=== PATIENT | female | born 1975 | race Caucasian/White ===

== ENCOUNTER 2018-11-03 14:49 | Observation (INO) | payer SELFPAY ==
[2018-11-03 15:15] LABS: #Basophils 0.1 thou/uL (0.0-0.2); #Eosinphils 0.1 thou/uL (0.0-0.7); #Monocytes 0.4 thou/uL (0.11-0.59); #Neutrophils 3.5 thou/uL (1.40-6.50); %Basophils 0.9 % (0.0-1.0); %Lymphocytes 41.6 % (21.0-51.0); %Neutrophils 49.5 % (42.0-75.0); Hemoglobin 12.2 g/dL (12.0-16.0); Mean Corpuscular HGB CONC 34.7 g/dL (32.0-36.0); Mean Corpuscular Hemoglobin 33.9 pg (27.0-31.0); Mean Corpuscular Volume 97.7 fL (78.0-98.0); Mean Platelet Volume 7.4 fL (7.4-10.4); Platelet Count 249 thou/uL (130-400); White Blood Cell (WBC) Count 7.1 thou/uL (4.8-10.8)
[2018-11-03 15:22] LABS: PTT 26.5 SEC (22.9-36.1); Prothrombin Time 12.7 SEC (12.0-14.7)
[2018-11-03 15:28] LABS: ALT (SGPT) 20 U/L (8-55); AST (SGOT) 17 U/L (5-34); Albumin 3.9 g/dL (3.5-5.0); Alkaline Phosphatase 44 U/L (40-110); Anion Gap 12 mmol/L (10-20); BUN (Urea Nitrogen) 13 mg/dL (7.0-18.7); Bilirubin, Total 0.4 mg/dL (0.2-1.2); CK (CPK) 97 U/L (29-168); Calc. Creatinine Clearance 0 mL/min (70-130); Calcium 9.1 mg/dL (7.8-10.44); Carbon Dioxide 21 mmol/L (22-29); Chloride 108 mmol/L (98-107); Estimated GFR-MDRD 70; Globulin 2.6 g/dL (2.4-3.5); Glucose 98 mg/dL (70-105); Potassium 3.8 mmol/L (3.5-5.1); Protein, Total 6.5 g/dL (6.0-8.3); Sodium 137 mmol/L (136-145)
--- NOTE | 2018-11-03 15:30 | CT ---
CT Brain WO Con: 11/03/2018 2:58 PM CLINICAL HISTORY: Level 2 stroke alert; numbness to the entire left side of the body with dizziness. IMAGING TECHNIQUE: Multiple CT images were obtained of the brain without IV contrast. COMPARISON: None. FINDINGS: Brain: No acute infarct or hemorrhage is evident. No midline shift. Ventricles: Normal. No hydrocephalus.. Skull: Intact.. Visualized Paranasal sinuses: Clear.. Mastoid air cells:Clear. Extracranial soft tissues:Normal. IMPRESSION: No acute intracranial abnormality. Findings called to Dr. Lozano at 3:20 PM on November 03, 2018.
--- NOTE | 2018-11-03 16:14 | RAD ---
EXAM: Chest Two Views 11/03/2018 4:11 PM HISTORY: Numbness of the left side of the body and dizziness COMPARISON: None. FINDINGS: Heart: Normal in size and contour. Pulmonary vessels: Normal. Costophrenic angles: Clear. Lungs: No acute airspace consolidation. Pneumothorax: None. Osseous structures:Intact. Additional findings: None. IMPRESSION: No significant acute intrathoracic disease.
[2018-11-03 16:37] LABS: BHCG - Serum Negative (NEGATIVE); Pregs Control Background? CLEAR/WHITE (CLR/WHITE); Pregs Control Bar Appear? YES (CONTROL BAR)
[2018-11-03 17:01] LABS: Bilirubin Negative (Negative); Blood, Urine 2+ (Negative); Clarity Clear (Clear); Glucose, Urine (Dipstick) Normal (Negative); Leukocyte 25 Leu/uL (Negative); Nitrite Negative (Negative); Protein, Urine (Dipstick) 10 mg/dL (Neg-Trace); Urobilinogen Normal mg/dL (Less than 2)
[2018-11-03 17:11] LABS: Squamous Epithelial 0-3 HPF (0-3); WBC/HPF 0-3 HPF (0-3)
[2018-11-03 17:12] LABS: Bacteria/HPF None Seen HPF (None Seen)
[2018-11-03] MEDS ORDERED: Aspirin Chewable 81 MG TAB ONE (17:51)
[2018-11-03] MEDS ORDERED: Meclizine HCl 25 MG TAB ONE (17:51)
[2018-11-03] MEDS ORDERED: hydrALAZINE 20 MG/ML VIAL SLOW IVP PRN (20:34)
--- NOTE | 2018-11-03 20:42 | PDOC.HHP ---
Hospitalist HPI - History of Present Illness left sided numbness History of Present Illness: 43 y/o smoke female with a history of trigeminal neuralgia presents to the ED with an acute onset of left sided numbness. Patient is right hand dominant and had been in her usual sate of health until 600am today when she began to experience the left sided numbness and associated ataxia, disequilibrium when walking. Denies recent illness. CT brain in the ER is negative. Not a TPA candidate as she was outside the window. Hospitalist ROS - Review of Systems Constitutional: denies: fever, chills, sweats, weakness, malaise, other Eyes: denies: pain, vision change, conjunctivae inflammation, eyelid inflammation, redness, other ENT: denies: ear pain, ear discharge, nose pain, nose discharge, nose congestion , mouth pain, mouth swelling, throat pain, throat swelling, other Respiratory: denies: cough, dry, shortness of breath, hemoptysis, SOB with excertion, pleuritic pain, sputum, wheezing, other Cardiovascular: denies: chest pain, palpitations, orthopnea, paroxysmal noc. dyspnea, edema, light headedness, other Gastrointestinal: denies: nausea, vomiting, abdominal pain, diarrhea, constipation, melena, hematochezia, other Genitourinary: denies: dysuria, frequency, incontinence, hematuria, retention, other Musculoskeletal: denies: neck pain, shoulder pain, arm pain, back pain, hand pain, leg pain, foot pain, other Skin: denies: rash, lesions, nain, bruising, other Neurological: reports: numbness, incoordination All other systems reviewed; all pertinent +/- noted in HPI/Subj Hospitalist History - Past Medical History Source: patient Cardiac: reports: no pertinent history, Other (trigeminal neurlagia) Pulmonary: reports: no pertinent history RECREATIONAL THERAPY AIDE: reports: no pertinent history Gastrointestinal: reports: no pertinent history Heme/Onc: reports: no pertinent history Hepatobiliary: reports: no pertinent history Psych: reports: no pertinent history Musculoskeletal: reports: no pertinent history Rheumatologic: reports: no pertinent history Infectious Disease: reports: no pertinent history ENT: reports: no pertinent history Renal/: reports: no pertinent history Endocrine: reports: no pertinent history Dermatology: reports: no pertinent history - Past Surgical History Past Surgical History: reports: no pertinent history - Family History Family History: reports: no pertinent history - Social History Smoking Status: Current every day smoker Alcohol: reports: None Drugs: reports: none Living Situation: With Family Activity level: independent ambulation - Exam General Appearance: NAD, awake alert Eye: PERRL, anicteric sclera ENT: normocephalic atraumatic, no oropharyngeal lesions, moist mucosa Neck: supple, symmetric, no JVD, no thyromegaly, no lymphadenopathy, no carotid bruit Heart: RRR, no murmur, no gallops, no rubs, normal peripheral pulses Respiratory: CTAB, no wheezes, no rales, no ronchi, normal chest expansion, no tachypnea, normal percussion Gastrointestinal: soft, non-tender, non-distended, normal bowel sounds, no palpable masses, no hepatomegaly, no splenomegaly, no bruit Extremities: no cyanosis, no clubbing, no edema Skin: normal turgor, no lesions, no rashes Neurological: cranial nerve grossly intact, normal sensation to touch, no weakness, no focal deficits, no new deficit Musculoskeletal: normal tone, normal strength, no muscle wasting Psychiatric: normal affect, normal behavior, A&O x 3 Hospitalist Results - Labs Result Diagrams: 11/03/18 15:02 11/03/18 15:02 Lab results: WBC 7.1 thou/uL (4.8-10.8) 11/03/18 15:02 Hgb 12.2 g/dL (12.0-16.0) 11/03/18 15:02 Hct 35.1 % (36.0-47.0) L 11/03/18 15:02 MCV 97.7 fL (78.0-98.0) 11/03/18 15:02 Plt Count 249 thou/uL (130-400) 11/03/18 15:02 Neutrophils % 49.5 % (42.0-75.0) 11/03/18 15:02 Sodium 137 mmol/L (136-145) 11/03/18 15:02 Potassium 3.8 mmol/L (3.5-5.1) 11/03/18 15:02 Chloride 108 mmol/L (98-107) H 11/03/18 15:02 Carbon Dioxide 21 mmol/L (22-29) L 11/03/18 15:02 BUN 13 mg/dL (7.0-18.7) 11/03/18 15:02 Creatinine 0.89 mg/dL (0.6-1.1) 11/03/18 15:02 Glucose 98 mg/dL (70-105) 11/03/18 15:02 Calcium 9.1 mg/dL (7.8-10.44) 11/03/18 15:02 Total Bilirubin 0.4 mg/dL (0.2-1.2) 11/03/18 15:02 AST 17 U/L (5-34) 11/03/18 15:02 ALT 20 U/L (8-55) 11/03/18 15:02 Alkaline Phosphatase 44 U/L (40-110) 11/03/18 15:02 Creatine Kinase 97 U/L (29-168) 11/03/18 15:02 Troponin I Less than 0.010 ng/mL (< 0.028) 11/03/18 15:02 Serum Total Protein 6.5 g/dL (6.0-8.3) 11/03/18 15:02 Albumin 3.9 g/dL (3.5-5.0) 11/03/18 15:02 Urine Ketones Negative mg/dL (Negative) 11/03/18 16:49 Urine Blood 2+ (Negative) A 11/03/18 16:49 Urine Nitrite Negative (Negative) 11/03/18 16:49 Ur Leukocyte Esterase 25 Nilay/uL (Negative) 11/03/18 16:49 Urine RBC 4-6 HPF (0-3) A 11/03/18 16:49 Urine WBC 0-3 HPF (0-3) 11/03/18 16:49 Ur Squamous Epith Cells 0-3 HPF (0-3) 11/03/18 16:49 Urine Bacteria None Seen HPF (None Seen) 11/03/18 16:49 - Radiology Interpretation CT scan - head Status: report reviewed by me (no intracranial abnormality) Hospitalist H&P A/P - Problem (1) Numbness and tingling in left arm Code(s): R20.0 - ANESTHESIA OF SKIN; R20.2 - PARESTHESIA OF SKIN Status: Acute Assessment and Plan: 1. left sided numbness, will obtain an MRI of the brain without contrast to evaluate for acute CVA, start aspirin 325mg daily and lipitor 80mg; obtain a lipid profile, neurology consult, physical/occupational therapy; smoking cessation (2) Trigeminal neuralgia Code(s): G50.0 - TRIGEMINAL NEURALGIA Status: Acute Assessment and Plan: on gabapentin at home
[2018-11-03] MEDS: Atorvastatin Calcium 40 MG TAB PO SCH (23:00)
[2018-11-03 23:23] VITALS: BMI 39.7
[2018-11-04 07:42] LABS: Cardiac Risk 3.4 (Less than 4.5)
--- NOTE | 2018-11-04 08:46 | MRI ---
MRI Brain WO Con: 11/04/2018 8:34 PM CLINICAL HISTORY: History of stroke. COMPARISON: Head CT previous day FINDINGS: Extra axial spaces: Normal in size and morphology for the patient's age. Acute infarction: None. Ventricular system: Normal in size and morphology for the patient's age. Basal cisterns: Normal. Cerebral parenchyma: Normal. Midline shift: None. Cerebellum: Normal. Brainstem: Normal. Paranasal sinuses:Prominent, mixed signal intensity opacification of left maxillary sinus IMPRESSION:No acute intracranial abnormality.
[2018-11-04] MEDS: Enoxaparin Sodium 40 MG/0.4 ML SYRINGE SC SCH (09:53)
[2018-11-04] MEDS: Aspirin 325 mg Enteric Coated Tablet PO SCH (09:53)
[2018-11-04] MEDS ORDERED: Ketorolac Tromethamine 30 MG/ML VIAL IVP SCH (13:15)
[2018-11-04] MEDS ORDERED: Fioricet 325/50/40 mg Tablet PO SCH (13:30)
--- NOTE | 2018-11-04 15:20 | PDOC.HOSPP ---
- Subjective Encounter Date: 11/04/18 Subjective: reports her symptoms has improved, although, remains vertiginous; tolerating oral intake; complains of headache, per nursing she is going outside the building for smoking - Objective Vital Signs & Weight: Vital Signs (12 hours) Temp Pulse Pulse Pulse Resp BP BP 11/04/18 11:57 98.1 F 71 16 11/04/18 10:05 56 L 67 146/97 H 151/98 H 11/04/18 10:04 56 L 67 146/97 H 151/98 H 11/04/18 08:26 97.8 F 68 18 11/04/18 03:40 98.3 F 60 18 BP Pulse Ox 11/04/18 11:57 133/91 H 95 11/04/18 10:05 11/04/18 10:04 11/04/18 08:26 142/99 H 100 11/04/18 03:40 111/77 93 L Weight Weight 224 lb 4.8 oz I&O: 11/03/18 11/04/18 11/05/18 06:59 06:59 06:59 Intake Total 240 Balance 240 Result Diagrams: 11/03/18 15:02 11/03/18 15:02 Hospitalist ROS - Review of Systems Respiratory: denies: shortness of breath Cardiovascular: denies: chest pain Gastrointestinal: denies: abdominal pain Neurological: reports: incoordination - Medication Medications: Active Medications Generic Name Dose Route Start Last Admin Trade Name Freq PRN Reason Stop Dose Admin Acetaminophen/Butalbital/Caffeine 2 tab 11/04/18 13:30 11/04/18 13:42 Fioricet PO 11/04/18 15:30 2 tab NOW KENDALL Administration Aspirin 325 mg 11/04/18 09:00 11/04/18 09:53 Ecotrin PO 325 mg DAILY KENDALL Administration Atorvastatin Calcium 80 mg 11/03/18 21:00 11/03/18 23:00 Lipitor PO 80 mg HS KENDALL Administration Enoxaparin Sodium 40 mg 11/04/18 09:00 11/04/18 09:53 Lovenox SC 40 mg 0900 KENDALL Administration - Exam General Appearance: NAD, awake alert Eye: PERRL, anicteric sclera ENT: normocephalic atraumatic, no oropharyngeal lesions, moist mucosa Neck: supple, symmetric, no JVD, no thyromegaly, no lymphadenopathy, no carotid bruit Heart: RRR, no murmur, no gallops, no rubs, normal peripheral pulses Respiratory: CTAB, no wheezes, no rales, no ronchi, normal chest expansion, no tachypnea, normal percussion Gastrointestinal: soft, non-tender, non-distended, normal bowel sounds, no palpable masses, no hepatomegaly, no splenomegaly, no bruit Extremities: no cyanosis, no clubbing, no edema Skin: normal turgor, no lesions, no rashes Neurological: cranial nerve grossly intact, normal sensation to touch, no weakness, no focal deficits, no new deficit Musculoskeletal: normal tone, normal strength, no muscle wasting Psychiatric: normal affect, normal behavior, A&O x 3 Hosp A/P (1) Numbness and tingling in left arm Code(s): R20.0 - ANESTHESIA OF SKIN; R20.2 - PARESTHESIA OF SKIN Status: Acute Plan: improved; MRI Brain is negative for acute CVA; will discontinue lipitor, continue low dose aspirin; no stroke, will discontinue neurology consult and stroke team; ; may need outpatient evaluation for cervical radiculopathy; await CTA head/neck in addition to Echocardiogram (2) Trigeminal neuralgia Code(s): G50.0 - TRIGEMINAL NEURALGIA Status: Acute Plan: continue with gabapentin
[2018-11-04] MEDS ORDERED: Nicotine 14 MG PATCH TD SCH (16:00)
[2018-11-04] MEDS: Meclizine HCl 25 MG TAB PO SCH (21:26)
[2018-11-04] MEDS: Atorvastatin Calcium 40 MG TAB PO SCH (21:26)
[2018-11-04] MEDS: Gabapentin 300 MG CAP PO SCH (21:26)
[2018-11-05] MEDS: Meclizine HCl 25 MG TAB PO SCH (06:45)
[2018-11-05] MEDS: Aspirin 325 mg Enteric Coated Tablet PO SCH (09:36)
[2018-11-05] MEDS: Gabapentin 300 MG CAP PO SCH (09:36)
[2018-11-05] MEDS: Enoxaparin Sodium 40 MG/0.4 ML SYRINGE SC SCH (09:36)
[2018-11-05 11:28] VITALS: BP 143/89; TEMP 98.4
[2018-11-05 12:38] LABS: Amphetamine Not Detected (NotDetected); Barbiturates Screen Detected (NotDetected); Benzodiazepine Screen Not Detected (NotDetected); Cocaine Metabolite Screen Not Detected (NotDetected); Medtox Control Line Valid? VALID (VALID); Medtox Reader # READER 4; Methadone Not Detected (NotDetected); Methamphetamine Not Detected (NotDetected); Opiate Screen Not Detected (NotDetected); Oxycodone Screen Not Detected (NotDetected); Phencyclidine (PCP) Not Detected (NotDetected); THC/Cannabinoid Screen Detected (NotDetected); Tricyclic Screen Not Detected (NotDetected)
--- NOTE | 2018-11-05 18:20 | DIS ---
DATE OF ADMISSION: 11/03/2018 DATE OF DISCHARGE: 11/05/2018 DISPOSITION: Discharge disposition is to home. PRIMARY DISCHARGE DIAGNOSIS: Dizziness, resolved. SECONDARY DISCHARGE DIAGNOSES: 1. Obesity. 2. History of trigeminal neuralgia. PROCEDURES DONE DURING HOSPITALIZATION: Initial CT brain without contrast done showed no acute intracranial abnormality. Chest x-ray, PA and lateral views done showed no acute intrathoracic disease. MRI brain showed no acute intracranial abnormality. Echo with 2D Doppler showed EF of 60% to 65%, possible small ASD/PFO. No obvious vegetations were seen. BUN 13, creatinine 0.8. Total cholesterol 148, triglycerides 87, LDL 88, HDL 43. Serum test negative. TSH 1.50. Troponin x1 negative. Liver enzymes were within normal limits. Albumin is 3.9. Urine tox screen was positive for cannabinoids and barbiturates. DISCHARGE MEDICATIONS: The patient to continue her home dose of gabapentin 300 mg p.o. three times daily. ALLERGIES: NO KNOWN DRUG ALLERGIES. DISCHARGE PLAN: The patient to follow up with her primary care physician in 1 week. BRIEF COURSE DURING HOSPITALIZATION: The patient initially came in with complaints of left-sided numbness and difficulty ambulating with dizziness. She has known history of trigeminal neurologia. In view of this history, the patient was placed under observation on stroke unit. She has had a complete stroke workup done, which has not revealed any evidence of CVA. Her numbness and tingling has completely resolved, mainly in the left upper extremity and facial area. The patient's orthostatic blood pressures were within normal limits. All our workup has been negative except for a small ASD or PFO. The patient is ambulating and eating well prior to discharge. Her dizziness has resolved. She was counseled with regard to marijuana abuse. She needs follow up with her primary care physician in 1 week. She is hemodynamically and neurologically stable prior to discharge. Please note, the patient does not have any evidence of CVA or TIA. Please note, I have seen and examined the patient on the day of discharge. Job ID: [id number]
--- NOTE | 2018-11-09 12:29 | EKG ---
Test Reason : Blood Pressure : / mmHG Vent. Rate : 076 BPM Atrial Rate : 076 BPM P-R Int : 146 ms QRS Dur : 078 ms QT Int : 394 ms P-R-T Axes : 020 042 032 degrees QTc Int : 443 ms Normal sinus rhythm Normal ECG Confirmed by ASTON GERARD M.D. ([id number]), website/blog editor HANNAH SEYMOUR ([id number] on 11/09/2018 12:29:02 PM Referred By: Confirmed By:ASTON GERARD M.D.
== END 2018-11-05 12:48 | disposition home or self-care (01) ==
LOC: ERS 14:49 → 2SE 17:45 → INTOOBSV 17:45 → 2SE 19:55
PROVIDERS: ADMIT Internal Medicine; ATTEND Internal Medicine
DX: R42 Dizziness and giddiness (principal); G50.0 Trigeminal neuralgia; F17.210 Nicotine dependence, cigarettes, uncomplicated; E66.9 Obesity, unspecified; Z68.39 Body mass index [BMI] 39.0-39.9, adult
CPT/HCPCS: 36415; 70450; 70551; 71046; 80053; 80061; 80306; 81003; 81015; 82550; 84443; 84484; 84703; 85025; 85610; 85730; 90471; 90732; 93005; 93306; 96372; 96374; G0009; G0378; J1650; J1885; J8597